=== PATIENT | male | born 1955 | race American Indian/Alaskan Native ===

== ENCOUNTER 2021-06-11 09:13 | Emergency (ER) | payer MEDICARE ==
[2021-06-11 09:17] VITALS: BP 143/91
[2021-06-11] MEDS ORDERED: KETOROLAC 60 MG/2 ML INJ IM ONE (10:45)
[2021-06-11] MEDS ORDERED: dexAMETHasone 4 MG/ML VIAL IM STA (10:45)
--- NOTE | 2021-06-11 10:55 | Emergency Department Report ---
ED General Adult HPI - General Chief complaint: Back Pain/Injury Stated complaint: BACK/LEG PAIN Time Seen by Provider: 06/11/21 10:14 Source: patient Mode of arrival: Ambulatory Limitations: No Limitations - History of Present Illness Initial comments: 66-year-old -[place] male patient without prior medical history presents with complaints of left lower back pain radiating down his left leg x2 weeks. Patient states he has been following with his primary care doctor for this pain. He states his doctor has performed an x-ray and informed him that he has degenerative changes that are likely causing sciatica. He states he has tried 2 rounds of medication and has failed on both treatments. He states he has tried naproxen and tramadol and then oxycodone and prednisone 20 mg. His pain is not improved. He denies any loss of sensation or weakness in his legs, history of spinal trauma, history of cancer, loss of bladder/bowel control, abdominal pain, fever/chills/sweats. He rates his current pain as a 9/10 in severity and states he cannot sit on his left buttock and is having some difficulty ambulating due to the pain. - Related Data Previous Rx's Medication Instructions Recorded Last Taken Type Naproxen [Naprosyn] 500 mg PO BID PRN #20 tablet 06/11/21 Unknown Rx methocarbamoL [Methocarbamol] 750 - 1,500 mg PO TID PRN #30 06/11/21 Unknown Rx tablet predniSONE [Deltasone] 40 mg PO BID 3 Days #12 tab 06/11/21 Unknown Rx Allergies Allergy/AdvReac Type Severity Reaction Status Date / Time No Known Allergies Allergy Unverified 06/11/21 09:13 ED Review of Systems ROS: Stated complaint: BACK/LEG PAIN Other details as noted in HPI Constitutional: denies: chills, fever Respiratory: denies: shortness of breath Cardiovascular: denies: chest pain Gastrointestinal: denies: abdominal pain, nausea, vomiting Genitourinary: denies: urgency, dysuria, frequency, hematuria Skin: denies: change in color Neurological: abnormal gait. denies: headache, weakness, numbness, paresthesias ED Past Medical Hx - Past Medical History Previous Medical History?: No - Surgical History Past Surgical History?: No - Medications Home Medications: Home Medications Medication Instructions Recorded Confirmed Last Taken Type Naproxen [Naprosyn] 500 mg PO BID PRN #20 tablet 06/11/21 Unknown Rx methocarbamoL [Methocarbamol] 750 - 1,500 mg PO TID PRN #30 06/11/21 Unknown Rx tablet predniSONE [Deltasone] 40 mg PO BID 3 Days #12 tab 06/11/21 Unknown Rx ED Physical Exam - General Limitations: No Limitations General appearance: alert, in no apparent distress - Head Head exam: Present: atraumatic, normocephalic - Eye Eye exam: Present: normal appearance. Absent: scleral icterus - Neck Neck exam: Present: normal inspection - Respiratory Respiratory exam: Present: normal lung sounds bilaterally. Absent: respiratory distress - Cardiovascular Cardiovascular Exam: Present: regular rate, normal rhythm - Extremities Exam Extremities exam: Present: full ROM - Expanded Back Exam Expanded Back exam: Absent: saddle anesthesia Back exam: Sciatic Notch Tenderness: Left, Positive Straight Leg Raise: Left - Neurological Exam Neurological exam: Present: alert, oriented X3. Absent: normal gait (Antalgic favoring the left leg), motor sensory deficit - Expanded Neurological Exam Expanded Sensory exam: Lower Extremity Light Touch: Normal Motor strength exam: RLE: 4, LLE: 4 - Psychiatric Psychiatric exam: Present: normal affect, normal mood - Skin Skin exam: Present: warm, dry, intact, normal color. Absent: rash ED Course Vital Signs 06/11/21 09:16 Temperature 98.2 F Pulse Rate 76 Respiratory 18 Rate Blood Pressure 143/91 O2 Sat by Pulse 97 Oximetry ED Medical Decision Making - Medical Decision Making 66-year-old -[place] male patient without prior medical history presents with complaints of left lower back pain radiating down his left leg x2 weeks. Patient states he has been following with his primary care doctor for this pain. He states his doctor has performed an x-ray and informed him that he has degenerative changes that are likely causing sciatica. He states he has tried 2 rounds of medication and has failed on both treatments. He states he has tried naproxen and tramadol and then oxycodone and prednisone 20 mg. His pain is not improved. He denies any loss of sensation or weakness in his legs, history of spinal trauma, history of cancer, loss of bladder/bowel control, abdominal pain, fever/chills/sweats. He rates his current pain as a 9/10 in severity and states he cannot sit on his left buttock and is having some difficulty ambulating due to the pain. Pain improved with meds given here in ED. Patient is ambulatory. No red flag symptoms present. He is well-appearing and stable for discharge home. Treatment for sciatica given. Informed patient to follow-up with his primary care doctor in 3 to 5 days. Also discussed signs and symptoms that should prompt immediate return to the ED in detail with patient who verbalizes understanding. Critical care attestation.: If time is entered above; I have spent that time in minutes in the direct care of this critically ill patient, excluding procedure time. ED Disposition Clinical Impression: Left-sided low back pain with sciatica Disposition: HOME / SELF CARE / HOMELESS Is pt being admited?: No Condition: Stable Instructions: Sciatica Prescriptions: predniSONE [Deltasone] 40 mg PO BID 3 Days #12 tab methocarbamoL [Methocarbamol] 750 - 1,500 mg PO TID PRN #30 tablet PRN Reason: muscle spasm/tightness Naproxen [Naprosyn] 500 mg PO BID PRN #20 tablet PRN Reason: pain Referrals: PRIMARY CARE, [Primary Care Provider] - 3-5 Days
== END 2021-06-11 13:56 | disposition home or self-care (01) ==
LOC: ED 09:13
DX: M54.42 Lumbago with sciatica, left side (principal)
CPT/HCPCS: 96372; 99282; J1100; J1885